=== PATIENT | female | born 1965 | race Caucasian/White ===

== ENCOUNTER → 2016-12-22 | Outpatient (CLI) | payer OTHER ==
--- NOTE | 2016-12-22 20:35 | US ---
EXAMINATION TYPE: US thyroid st tissue head/neck DATE OF EXAM: 12/22/2016 3:27 PM COMPARISON: NONE CLINICAL HISTORY: R22.0 Swelling/Mass head/neck. On meds, choking sensation and hoarse throat GLAND SIZE: Right Lobe: 4.8 x 2.1 x 1.8 cm Overall Parenchyma: heterogenous Left Lobe: 4.4 x 1.2 x 1.6 cm Overall Parenchyma: heterogeneous Isthmus Thickness: 0.5 cm NODULES RIGHT: # of nodules measured on right: 0 LEFT: # of nodules measured on left: 0 ISTHMUS: # of nodules measured in the isthmus: 0 Findings: The is thyroid tissue is Heterogeneous bilaterally. IMPRESSION: Correlate for thyroiditis.
== END | disposition home or self-care (01) ==
LOC: RADUSWWP 15:01
PROVIDERS: ATTEND Internal Medicine
DX: R22.0 Localized swelling, mass and lump, head (principal)
CPT/HCPCS: 76536